=== PATIENT | female | born 1945 | race Caucasian/White ===

== ENCOUNTER → 2016-11-28 07:47 | Outpatient (CLI) | payer MEDICARE, OTHER ==
[2010-05-08 09:31] VITALS: BMI 25.9
== END ==
LOC: D.MRI 11-26 15:00
DX: R41.3 Other amnesia (principal)

== ENCOUNTER 2017-02-01 19:10 | Emergency (ER) | payer MEDICARE, OTHER ==
[2010-05-08 09:31] VITALS: BMI 25.9
[2017-02-01 20:05] LABS: BASOPHILS 0.1 % (0-2); EOSINOPHILS 0.1 % (0-7); HEMATOCRIT 35.8 % (36.0-48.0); HEMOGLOBIN 11.5 g/dL (12-16); IMMATURE GRANULOCYTES 0.3 % (0-5); LYMPHOCYTES 7.2 % (15-50); MCH 29.1 pg (26.0-34.0); MCHC 32.1 g/dL (31.0-37.0); MCV 90.6 fL (80.0-100.0); MEAN PLATELET VOLUME 8.8 fL (7.4-10.4); MONOCYTES 3.5 % (2-11); NEUTROPHILS 88.8 % (40-80); PLATELET COUNT 273 10x3/uL (130-400); RBC 3.95 10x6/uL (4.00-5.40); RDW 14.4 % (11.5-14.5); WBC 11.1 10x3/uL (4.8-10.8)
[2017-02-01 20:37] LABS: ALBUMIN 3.4 g/dL (3.4-5.0); ALKALINE PHOSPHATASE 83 U/L (46-116); ALT (SGPT) 19 U/L (10-68); BILIRUBIN - TOTAL 0.38 mg/dL (0.2-1.3); CALC OSMOLALITY 276 mosm/kg (275-300); CALCIUM 8.7 mg/dL (8.5-10.1); CARBON DIOXIDE 29.1 mmol/L (21.0-32.0); CHLORIDE - SERUM 102 mmol/L (98-107); CREATININE - SERUM 0.8 mg/dL (0.6-1.3); GLUCOSE 114 mg/dL (74-106); POTASSIUM - SERUM 3.2 mmol/L (3.5-5.1); SODIUM 139 mmol/L (136-145); UREA NITROGEN 6 mg/dL (7-18); eGFR NON AFRICAN AMERICAN 75 mL/min (90-120)
[2017-02-01 20:38] LABS: AMYLASE - SERUM 50 U/L (25-115); LIPASE 87 U/L (73-393)
== END 2017-02-01 21:27 | disposition home or self-care (01) ==
LOC: D.ER 19:10
PROVIDERS: Nurse Practitioner Acute Care
DX: R10.9 Unspecified abdominal pain (principal); E87.6 Hypokalemia; G25.81 Restless legs syndrome; F32.9 Major depressive disorder, single episode, unspecified

== ENCOUNTER → 2017-12-28 10:07 | Outpatient (CLI) | payer MEDICARE, OTHER ==
[2010-05-08 09:31] VITALS: BMI 25.9
== END | disposition home or self-care (01) ==
LOC: D.MRI 10:07
DX: M47.897 Other spondylosis, lumbosacral region (principal)

== ENCOUNTER 2018-06-09 07:47 | Outpatient (CLI) | payer MEDICARE, OTHER ==
[~2018-06-09] VITALS: Ht 149.9 cm; Wt 54.5 kg
[2018-06-09 09:50] VITALS: BP 102/62; Ht 149.9 cm; Wt 54.5 kg
== END 2018-06-09 15:25 | disposition home or self-care (01) ==
LOC: D.OPS 07:47
DX: D64.9 Anemia, unspecified (principal); Z01.812 Encounter for preprocedural laboratory examination

== ENCOUNTER → 2018-06-17 15:45 | Outpatient (CLI) | payer MEDICARE, OTHER ==
[2018-06-09 09:50] VITALS: BMI 24.3
[2018-06-17 16:18] LABS: BASOPHILS 0.2 % (0-2); EOSINOPHILS 1.8 % (0-7); HEMATOCRIT 32.4 % (36.0-48.0); HEMOGLOBIN 10.4 g/dL (12-16); IMMATURE GRANULOCYTES 0.2 % (0-5); LYMPHOCYTES 38.3 % (15-50); MCH 26.2 pg (26.0-34.0); MCHC 32.1 g/dL (31.0-37.0); MCV 81.6 fL (80.0-100.0); MEAN PLATELET VOLUME 8.3 fL (7.4-10.4); MONOCYTES 10.9 % (2-11); NEUTROPHILS 48.6 % (40-80); RBC 3.97 10x6/uL (4.00-5.40); RDW 18.5 % (11.5-14.5); WBC 4.5 10x3/uL (4.8-10.8)
[2018-06-17 16:31] LABS: PLATELET COUNT 378 10x3/uL (130-400)
== END | disposition home or self-care (01) ==
LOC: D.LAB 15:45
PROVIDERS: Internal Medicine Gastroenterology
DX: D64.9 Anemia, unspecified (principal); K59.09 Other constipation; R12 Heartburn

== ENCOUNTER → 2019-06-07 08:40 | Outpatient (CLI) | payer MEDICARE, OTHER ==
[2018-06-09 09:50] VITALS: BMI 24.3
--- NOTE | 2019-06-08 14:32 | EC ---
PATIENT:EMANI LUNA DATE OF SERVICE: 06/07/19 SEX: F MEDICAL RECORD: [id number] DATE OF : 47 [facility] AGE OF PATIENT: 74 ADMISSION DATE: 06/07/19 REFERRING PHYSICIAN: INTERPRETING PHYSICIAN: LUCI MELCHOR MD ECHOCARDIOGRAM REPORT ECHO CHARGES 4 ECHO COMPLETE Date: 06/07/19 CLINICAL DIAGNOSIS: TACHYCARDIA, DYSPNEA ECHOCARDIOGRAPHIC MEASUREMENTS (adult normal given) AC root (d.<3.7cm) 2.7 cm LV Septum d (<1.2 cm> 1.1 cm Valve Excursion 1.2 cm LV Septum (systole) 1.4 cm Left Atria (s.<4.0cm> 3.6 cm LVPW d(<1.2cm) 0.9 cm RV (d.<2.3cm) 3.2 cm LVPW (sytole) 1.0 cm LV diastole(<5.6CM) 4.0 cm MV E-F(>70mm/sec) cm LV systole 3.0 cm LVOT Diameter 2.0 cm MV exc.(>10mm) cm Est.ejection fraction (50-75%) % DOPPLER: LVIT cm/sec A 90 cm/sec E 70 cm/sec LA cm/sec RVSP 37.9 mmHg LVOT 90 cm/sec AOP1/2T m/s Asc. Ao 147 cm/sec RVOT 62 cm/sec RA cm/sec PA 84 cm/sec AV Gradient Peak 8.7 mmHg AV Mean 4.6 mmHg AV Area 2.0 cm MV Gradient Peak 3.8 mmHg MV Mean 1.7 mmHg MV Area cm COMMENTS: Supervisor Accounts Receivable: Shannon [facility] Fur Cutter: 1 Dr. Melchor TAPE# PACS Pericardial Effusion N DATE OF SERVICE: 06/07/2019 PROCEDURE: Echocardiogram. FINDINGS: 1. Left ventricular chamber size is within normal limits. Left ventricular systolic function is normal. Overall ejection fraction estimated at 55% to 60%. 2. Left atrium is within normal limits. Right atrium and right ventricular chamber sizes are mildly dilated. 3. Valvular structures have normal structure and motion. ECHOCARDIOGRAM REPORT [id number] EMANI LUNA 4. Doppler interrogation reveals mild tricuspid regurgitation, no other valvular insufficiency or stenosis. Pulmonary systolic pressure is estimated 38 mmHg. 5. No evidence of pericardial effusion or left ventricular thrombus. TRANSINT:[id number] Voice Confirmation ID: [id number] DOCUMENT ID: [id number] LUCI MELCHOR MD at 1432 CC: [id number] DICTATION DATE: 06/07/19 1228 BODY MAKER: 06/07/19 1339 DEP CLI 06/07/19 [place] [id number] [place] [id number]
== END | disposition home or self-care (01) ==
LOC: D.ECHO 08:40
PROVIDERS: ATTEND Family Medicine
DX: R00.0 Tachycardia, unspecified (principal); R06.09 Other forms of dyspnea

== ENCOUNTER → 2019-07-11 08:11 | Outpatient (CLI) | payer MEDICARE, OTHER ==
[2018-06-09 09:50] VITALS: BMI 24.3
[2019-07-11 09:33] LABS: BASOPHILS 0.3 % (0-2); EOSINOPHILS 4.3 % (0-7); HEMATOCRIT 34.9 % (36.0-48.0); HEMOGLOBIN 11.1 g/dL (12-16); LYMPHOCYTES 29.2 % (15-50); MCH 26.9 pg (26.0-34.0); MCHC 31.8 g/dL (31.0-37.0); MCV 84.7 fL (80.0-100.0); MEAN PLATELET VOLUME 8.1 fL (7.4-10.4); MONOCYTES 13.4 % (2-11); NEUTROPHILS 52.8 % (40-80); RBC 4.12 10x6/uL (4.00-5.40); RDW 22.4 % (11.5-14.5); WBC 3.7 10x3/uL (4.8-10.8)
[2019-07-11 09:35] LABS: PLATELET COUNT 272 10x3/uL (130-400)
[2019-07-11 09:46] LABS: % SATURATION 19 % (15-55); IRON 51 ug/dl (35-150); TOTAL IRON BIND CAPACITY 265 ug/dl (260-445); UNSAT IRON BIND CAPACITY 214 ug/dl (150-375)
== END | disposition home or self-care (01) ==
LOC: D.RAD 08:11
PROVIDERS: ATTEND Internal Medicine Gastroenterology
DX: D64.9 Anemia, unspecified (principal); R13.10 Dysphagia, unspecified; R12 Heartburn

== ENCOUNTER 2020-05-23 11:20 | Outpatient (CLI) | payer MEDICARE, OTHER ==
[~2020-05-23] VITALS: Ht 149.9 cm; Wt 58.2 kg
[2020-05-23 11:56] VITALS: BP 149/73; Ht 149.9 cm; Wt 58.2 kg
== END 2020-05-23 12:10 | disposition home or self-care (01) ==
LOC: D.OPS 11:20
PROVIDERS: ATTEND Family Medicine
DX: M81.8 Other osteoporosis without current pathological fracture (principal); E78.2 Mixed hyperlipidemia; D50.9 Iron deficiency anemia, unspecified; F17.200 Nicotine dependence, unspecified, uncomplicated; K21.9 Gastro-esophageal reflux disease without esophagitis; I10 Essential (primary) hypertension

== ENCOUNTER 2020-12-15 20:07 | Inpatient (IN) | payer MEDICARE, OTHER ==
[~2020-12-15] VITALS: Ht 149.9 cm; Wt 63.6 kg
[2020-12-15] MEDS ORDERED: ABILIFY10 MG PO (20:32)
[2020-12-15] MEDS ORDERED: BENICAR40 MG PO (20:32)
[2020-12-15] MEDS ORDERED: ALBUTEROL SULF8.5 GM INH (20:33)
[2020-12-15] MEDS ORDERED: ADVAIR HFA [SP]12 GM INH (20:33)
[2020-12-15] MEDS ORDERED: BUMEX2 MG PO (20:34)
[2020-12-15] MEDS ORDERED: CYMBALTA60 MG PO (20:34)
[2020-12-15] MEDS ORDERED: MIRAPEX0.5 MG PO (20:43)
[2020-12-15] MEDS ORDERED: MYSOLINE250 MG PO (20:44)
[2020-12-15] MEDS ORDERED: ZOCOR40 MG PO (20:45)
[2020-12-15] MEDS ORDERED: POTASSIUM CHLO10 ME1 PO (20:45)
[2020-12-15] MEDS ORDERED: PROTONIX40 MG PO (20:45)
[2020-12-15] MEDS ORDERED: FOLBIC RF TABL1 EACH PO (20:47)
[2020-12-15] MEDS ORDERED: TESSALON PERLE100 MG PO (20:47)
[2020-12-15] MEDS ORDERED: CARAFATE1 G PO (20:48)
[2020-12-15] MEDS ORDERED: CITRACAL + D E1 EACH PO (20:49)
[2020-12-15] MEDS ORDERED: PHENERGAN25 M1 PO (20:49)
[2020-12-15] MEDS ORDERED: FERROUS SULFAT325 MG PO (20:49)
[2020-12-15] MEDS ORDERED: HYDROCODON-ACE1 EA10 PO (20:50)
[2020-12-15 21:00] LABS: BASOPHILS 0.1 % (0-2); EOSINOPHILS 1.1 % (0-7); HEMATOCRIT 38.6 % (36.0-48.0); HEMOGLOBIN 13.1 g/dL (12-16); IMMATURE GRANULOCYTES 0.3 % (0-5); LYMPHOCYTES 11.6 % (15-50); MCHC 33.9 g/dL (31.0-37.0); MCV 94.1 fL (80.0-100.0); MEAN PLATELET VOLUME 8.2 fL (7.4-10.4); MONOCYTES 7.9 % (2-11); NEUTROPHIL ABS# 7.48 10x3/uL (1.56-6.13); RDW 12.3 % (11.5-14.5); WBC 9.5 10x3/uL (4.8-10.8)
[2020-12-15 21:09] LABS: APTT 31.4 SECONDS (22.8-39.4); INR 1.12 (0.85-1.17); PLATELET COUNT 206 10x3/uL (130-400); PROTIME 13.3 SECONDS (11.6-15.0)
[2020-12-15 21:11] LABS: CALC OSMOLALITY 263 mosm/kg (275-300); CALCIUM 8.5 mg/dL (8.5-10.1); CARBON DIOXIDE 27.8 mmol/L (21.0-32.0); CHLORIDE - SERUM 98 mmol/L (98-107); CREATININE - SERUM 0.7 mg/dL (0.6-1.3); GLUCOSE 93 mg/dL (74-106); SODIUM 132 mmol/L (136-145); UREA NITROGEN 9 mg/dL (7-18); eGFR NON AFRICAN AMERICAN 87 mL/min (90-120)
[2020-12-15 21:25] LABS: ALBUMIN 3.6 g/dL (3.4-5.0); ALKALINE PHOSPHATASE 62 U/L (30-120); ALT (SGPT) 33 U/L (10-68); BILIRUBIN - TOTAL 0.26 mg/dL (0.2-1.3); CKMB 1.6 U/L (0.0-3.6); CREATINE KINASE 90 UL (21-215); LIPASE 1078 U/L (73-393); MAGNESIUM - SERUM 1.8 mg/dL (1.8-2.4); PROTEIN - SERUM 6.8 g/dL (6.4-8.2); TROPONIN-I < 0.017 ng/mL (0.000-0.060)
[2020-12-15 21:41] LABS: BILIRUBIN NEGATIVE (NEGATIVE); KETONE NEGATIVE (NEGATIVE); NITRITE NEGATIVE (NEGATIVE); UROBILINOGEN NORMAL mg/dL (< 2)
[2020-12-15 21:48] LABS: BACTERIA FEW HPF (NONE SEEN); SQUAMOUS EPITHELIAL NONE SEEN HPF (0-4); WHITE CELLS - URINE 0-5 HPF (0-4)
[2020-12-15 21:52] LABS: UDS - AMPHET NEGATIVE QUAL (NEGATIVE); UDS - BARB POSITIVE QUAL (NEGATIVE); UDS - BENZO NEGATIVE QUAL (NEGATIVE); UDS - COCAINE NEGATIVE QUAL (NEGATIVE); UDS - OPIATE NEGATIVE QUAL (NEGATIVE); UDS - PCP NEGATIVE QUAL (NEGATIVE); UDS - THC NEGATIVE QUAL (NEGATIVE)
[2020-12-15 23:54] VITALS: BP 150/73
[2020-12-16 01:19] VITALS: BP 161/83
--- NOTE | 2020-12-16 02:43 | NUR ---
REPORT TO MS TSE
[2020-12-16 03:40] VITALS: BP 182/78; Ht 149.9 cm; Wt 63.6 kg
--- NOTE | 2020-12-16 03:48 | NUR ---
SCD'S IN ROOM, PT REFUSED TO WEAR THEM AT THIS TIME, PROVIDED EDUCATION, STATES UNDERSTANDING
[2020-12-16 05:44] LABS: BASOPHILS 0.2 % (0-2); EOSINOPHILS 0.7 % (0-7); HEMATOCRIT 38.7 % (36.0-48.0); IMMATURE GRANULOCYTES 0.2 % (0-5); LYMPHOCYTE ABS# 1.18 10x3/uL (1.18-3.74); LYMPHOCYTES 21.5 % (15-50); MCH 31.3 pg (26.0-34.0); MCHC 33.6 g/dL (31.0-37.0); MCV 93.3 fL (80.0-100.0); MEAN PLATELET VOLUME 8.6 fL (7.4-10.4); MONOCYTES 8.2 % (2-11); NEUTROPHIL ABS# 3.79 10x3/uL (1.56-6.13); NEUTROPHILS 69.2 % (40-80); PLATELET COUNT 240 10x3/uL (130-400); RBC 4.15 10x6/uL (4.00-5.40); RDW 12.4 % (11.5-14.5)
[2020-12-16 05:48] LABS: WBC 5.5 10x3/uL (4.8-10.8)
[2020-12-16 06:32] LABS: ALBUMIN 3.5 g/dL (3.4-5.0); ALKALINE PHOSPHATASE 59 U/L (30-120); ALT (SGPT) 34 U/L (10-68); AMYLASE - SERUM 83 U/L (25-115); BILIRUBIN - TOTAL 0.26 mg/dL (0.2-1.3); CALC OSMOLALITY 279 mosm/kg (275-300); CALCIUM 8.2 mg/dL (8.5-10.1); CHLORIDE - SERUM 107 mmol/L (98-107); CHOL - HDL RATIO 1.9 ratio (2.3-4.1); CHOLESTEROL, TOTAL 163 mg/dL (0-200); CREATININE - SERUM 0.6 mg/dL (0.6-1.3); GLUCOSE 116 mg/dL (74-106); HDL CHOLESTEROL 87 mg/dL (32-96); LDL CHOLESTEROL 71 mg/dL (0-100); LDL-HDL RATIO 0.8 ratio (1.5-3.5); MAGNESIUM - SERUM 1.8 mg/dL (1.8-2.4); PHOSPHOROUS 1.9 mg/dL (2.5-4.9); PROTEIN - SERUM 6.7 g/dL (6.4-8.2); SODIUM 141 mmol/L (136-145); THYROID STIMULATING HORMONE 0.46 uIU/mL (0.36-3.74); TRIGLYCERIDE 28 mg/dL (30-200); UREA NITROGEN 7 mg/dL (7-18); eGFR NON AFRICAN AMERICAN > 90 mL/min (90-120)
[2020-12-16 07:08] LABS: LIPASE 184 U/L (73-393); TROPONIN-I < 0.017 ng/mL (0.000-0.060)
[2020-12-16 07:10] LABS: POTASSIUM - SERUM 2.8 mmol/L (3.5-5.1)
[2020-12-16 08:30] VITALS: BP 178/85
--- NOTE | 2020-12-16 08:35 | NUR ---
TO MRI THIS AM, CONT TO MONITOR, NPO
[2020-12-16 12:11] VITALS: BP 176/89
[2020-12-16] MEDS ORDERED: CATAPRES PO (12:12)
--- NOTE | 2020-12-16 15:00 | NUR ---
IV REMOVED, TIP INTACT, REVIEWED DC ORDERS, VOICED NO CONCERNS, TAKEN TO PRIVATE VEHICLE PER WC
--- NOTE | 2020-12-16 18:46 | MORECARE ---
CASE MANAGEMENT DISCHARGE SUMMARY PATIENT: EMANI LUNA UNIT: [id number] ADM DATE: 12/16/20 AGE: 75 : 46 SEX: F [facility] AUTHOR: JOSH,DOC PHYSICIAN: REFERRING PHYSICIAN: MEHUL REDMAN MD DATE OF SERVICE: 12/16/20 Case Management Discharge Planning Summary DCP REVIEW SUMMARY ANTICIPATED D/C DATE: 12/16/2020 EXPECTED LOS : 1 CASE STATUS: DCP Initiated INITIAL REVIEW: 12/16/2020 INITIAL REVIEWER: Adam Mullen FINAL DISCHARGE DISPOSITION: : FINAL REVIEWER: FINAL REVIEW DATE: DCP Focus Questions & Answers - Added on: QUESTION: ANSWER : PATIENT: EMANI LUNA ENCOUNTER: [id number] MEDICAL RECORD#: [id number] ADMISSION DATE: 12/16/2020 DISCHARGE DATE: 12/16/2020 ATTENDING MD: MEHUL VAZQUEZ : AGE: 75 MARITAL STATUS: W DC PLAN ID: [id number] FACILITY: [facility] PRINTED ON: 12/16/20 18:46 CT All edits/amendments must be made on the electronic document DICTATION DATE: 12/16/201844 TRAINING PROGRAM ASSISTANT: SANKET 12/16/201844 RPT#: [id number] DC DATE:12/16/20 STATUS: DIS IN [facility] [address] [place] [address] END OF REPORT
--- NOTE | 2020-12-16 18:56 | MORECARE ---
CASE MANAGEMENT DISCHARGE SUMMARY PATIENT: EMANI LUNA UNIT: [id number] ADM DATE: 12/16/20 AGE: 75 : 47 SEX: F ROOM/BED: D.2223 AUTHOR: MERISSA MORENO PHYSICIAN: REFERRING PHYSICIAN: MEHUL REDMAN MD DATE OF SERVICE: 12/16/20 Case Management Discharge Planning Summary COMMENTS ENTERED DATE: 12/16/20 18:53 CT COMMENT TYPE: Discharge Planning REVIEWER: Adam Mullen CM met with patient to complete DC plan and to evaluate needs. Patient lives independently home with family. At discharge, the patient plans to return home and feels this is a safe discharge. CM discussed availability of home health, rehab services, and medical equipment. Patient declined HHS, SNF, IPR, and DME. Patient voiced no other needs at this time and is satisfied with DC plan. Transportation provider at discharge will be with her son, Dallas Luna ([phone]). DC IMM delivered, explained, signed by the patient, and placed in chart. Signed form also left with the patient. CM will continue to follow and will assist as needed with dc plans/needs. DCP REVIEW SUMMARY ANTICIPATED D/C DATE: 12/16/2020 EXPECTED LOS : 1 CASE STATUS: DCP Initiated INITIAL REVIEW: 12/16/2020 INITIAL REVIEWER: Adam Mullen FINAL DISCHARGE DISPOSITION: : FINAL REVIEWER: FINAL REVIEW DATE: DCP Focus Questions & Answers DCP REV -DCP Review Added on: 12/16/20 6:46 pm QUESTION: ANSWER DCP Screen Walking limitation: Patient stated self rated walking limitation present? : No Age: : 66 - 80 Prior living environment: : Lives with others Disability ranking: : Grade 1: No significant disability DCP Evaluation Patient's ability to cope with chronic illness : d. No chronic illness Mental health screen: : No mental health history Would patient like to participate in any Care Coordination programs (if applicable): : Not applicable Patient gives permission to discuss discharge plans with: (name, relationship and number) : DALLAS LUNA SON, Living Arrangements: : Home with others Pharmacy name(s): : [facility] [address] Does Patient have transportation to get home and to follow-up medical appointments when discharged from the hospital? : Yes Does the patient have electricity at home? : Yes Does the patient have running water in their house? : Yes Equipment in use: : Cane - Quad Patient's current cognitive status: : *Oriented to person, place, situation, time and present Functional screen assessment: : No issues identified Patient with capacity for self-care or can be cared for in same environment as prior to hospitalization? : Yes Does the patient have the ability to pay for or attain post discharge needs / services? : Yes Is there a likelihood that the patient will require additional services to return to the preadmission environment? : No Patient and/or caregiver agree upon recommended discharge plan? : Yes Equipment needed for post hospitalization: : None Physical environment modification needed / anticipated for discharge: : No DCP Re-evaluation Would patient like to participate in any Care Coordination programs (if applicable): : Not applicable PATIENT: EMANI LUNA ENCOUNTER: [id number] MEDICAL RECORD#: [id number] ADMISSION DATE: 12/16/2020 DISCHARGE DATE: 12/16/2020 ATTENDING MD: MEHUL VAZQUEZ : [birth year] AGE: 75 MARITAL STATUS: W DC PLAN ID: [id number] FACILITY: [facility] PRINTED ON: 12/16/20 18:56 CT All edits/amendments must be made on the electronic document DICTATION DATE: 12/16/201855 MASTER CHEF: SANKET 12/16/201855 RPT#: [id number] DC DATE:12/16/20 STATUS: DIS IN [facility] [address] [place] [address] END OF REPORT
--- NOTE | 2020-12-18 16:36 | MORECARE ---
CASE MANAGEMENT DISCHARGE SUMMARY PATIENT: EMANI LUNA UNIT: [id number] ADM DATE: 12/16/20 AGE: 75 : 47 SEX: F ROOM/BED: D.2223 AUTHOR: MERISSA MORENO PHYSICIAN: REFERRING PHYSICIAN: MEHUL REDMAN MD DATE OF SERVICE: 12/18/20 Case Management Discharge Planning Summary COMMENTS ENTERED DATE: 12/16/20 18:53 CT COMMENT TYPE: Discharge Planning REVIEWER: Adam Mullen CM met with patient to complete DC plan and to evaluate needs. Patient lives independently home with family. At discharge, the patient plans to return home and feels this is a safe discharge. CM discussed availability of home health, rehab services, and medical equipment. Patient declined HHS, SNF, IPR, and DME. Patient voiced no other needs at this time and is satisfied with DC plan. Transportation provider at discharge will be with her son, Dallas Luna ([phone]). DC IMM delivered, explained, signed by the patient, and placed in chart. Signed form also left with the patient. CM will continue to follow and will assist as needed with dc plans/needs. DCP REVIEW SUMMARY ANTICIPATED D/C DATE: 12/16/2020 EXPECTED LOS : 1 CASE STATUS: DCP Initiated INITIAL REVIEW: 12/16/2020 INITIAL REVIEWER: Adam Mullen FINAL DISCHARGE DISPOSITION: : FINAL REVIEWER: FINAL REVIEW DATE: DCP Focus Questions & Answers DCP REV -DCP Review Added on: 12/16/20 6:46 pm QUESTION: ANSWER DCP Screen Walking limitation: Patient stated self rated walking limitation present? : No Age: : 66 - 80 Prior living environment: : Lives with others Disability ranking: : Grade 1: No significant disability DCP Evaluation Patient's ability to cope with chronic illness : d. No chronic illness Mental health screen: : No mental health history Would patient like to participate in any Care Coordination programs (if applicable): : Not applicable Patient gives permission to discuss discharge plans with: (name, relationship and number) : D[place] LUNA SON, Living Arrangements: : Home with others Pharmacy name(s[facility] : [facility] [address] Does Patient have transportation to get home and to follow-up medical appointments when discharged from the hospital? : Yes Does the patient have electricity at home? : Yes Does the patient have running water in their house? : Yes Equipment in use: : Cane - Quad Patient's current cognitive status: : *Oriented to person, place, situation, time and present Functional screen assessment: : No issues identified Patient with capacity for self-care or can be cared for in same environment as prior to hospitalization? : Yes Does the patient have the ability to pay for or attain post discharge needs / services? : Yes Is there a likelihood that the patient will require additional services to return to the preadmission environment? : No Patient and/or caregiver agree upon recommended discharge plan? : Yes Equipment needed for post hospitalization: : None Physical environment modification needed / anticipated for discharge: : No DCP Re-evaluation Would patient like to participate in any Care Coordination programs (if applicable): : Not applicable PATIENT: EMANI LUAN ENCOUNTER: [id number] MEDICAL RECORD#: [id number] ADMISSION DATE: 12/16/2020 DISCHARGE DATE: 12/16/2020 ATTENDING MD: MEHUL VAZQUEZ : [birth year] AGE: 75 MARITAL STATUS: W DC PLAN ID: [id number] FACILITY: [facility] PRINTED ON: 12/18/20 16:36 CT All edits/amendments must be made on the electronic document DICTATION DATE: 12/18/[address]35 STRE[address] OPENINGS INSPECTOR: SANKET 12/18/201635 RPT#: [id number] DC DATE:12/16/20 STATUS: DIS IN [facility] [address] [place] [address] END OF REPORT
== END 2020-12-16 15:00 | disposition home or self-care (01) | DRG 438 ==
LOC: D.ER 20:07 → D.MS 12-16 01:18
PROVIDERS: Family Medicine; ADMIT Emergency Medicine; ATTEND Emergency Medicine
DX: K86.89 Other specified diseases of pancreas (principal); G93.41 Metabolic encephalopathy; E16.2 Hypoglycemia, unspecified; E87.6 Hypokalemia; I10 Essential (primary) hypertension; E78.5 Hyperlipidemia, unspecified; J44.9 Chronic obstructive pulmonary disease, unspecified; K21.9 Gastro-esophageal reflux disease without esophagitis; F41.8 Other specified anxiety disorders; M19.90 Unspecified osteoarthritis, unspecified site; M41.9 Scoliosis, unspecified

== ENCOUNTER 2020-12-25 14:25 | Outpatient (CLI) | payer MEDICARE, OTHER ==
[~2020-12-25] VITALS: Ht 149.9 cm; Wt 63.6 kg
[~2020-12-25 14:25] MED LIST: ABILIFY10 MG PO; ADVAIR HFA [SP]12 GM INH; ALBUTEROL SULF8.5 GM INH; BENICAR40 MG PO; BUMEX2 MG PO; CARAFATE1 G PO; CATAPRES PO; CITRACAL + D E1 EACH PO; CYMBALTA60 MG PO; FERROUS SULFAT325 MG PO; FOLBIC RF TABL1 EACH PO; HYDROCODON-ACE1 EA10 PO; MIRAPEX0.5 MG PO; MYSOLINE250 MG PO; PHENERGAN25 M1 PO; POTASSIUM CHLO10 ME1 PO; PROTONIX40 MG PO; TESSALON PERLE100 MG PO; ZOCOR40 MG PO
[2020-12-25 15:09] VITALS: BP 156/79; Ht 149.9 cm; Wt 63.6 kg
== END 2020-12-25 15:20 | disposition home or self-care (01) ==
LOC: D.OPS 14:25
PROVIDERS: ATTEND Family Medicine
DX: M81.0 Age-related osteoporosis without current pathological fracture (principal)